=== PATIENT | male | born 1940 | race Two or more races ===

== ENCOUNTER 2018-09-05 07:22 | Inpatient (IN) | payer MEDICARE, OTHER | END 2018-09-06 13:20 | disposition home or self-care (01) | LOC: ER 07:22 → OVERFLOW 07:23 → WEST WING 14:17 | DX: R10.9 Unspecified abdominal pain (principal); I10 Essential (primary) hypertension; K57.90 Diverticulosis of intestine, part unspecified, without perforation or abscess without bleeding; E78.5 Hyperlipidemia, unspecified; I70.8 Atherosclerosis of other arteries ==